=== PATIENT | male | born 1965 | race Caucasian/White ===

== ENCOUNTER → 2016-12-02 | Outpatient (CLI) | payer OTHER ==
[~2016-12-02] MED LIST: ATEN50TA PO; DILT240C96 PO; ERGO500012 PO; ESCI20TA PO; FLUT16SP NS; GADOBUTROL 7.5 MMOL/7.5 ML VIAL IV ONE; HYDR25TA9 PO; LOSA100T6 PO; POTA25TA4 PO
--- NOTE | 2016-12-02 14:47 | KCIC ---
PROCEDURE MRI brain without and with contrast. HISTORY Headaches, history of lung cancer and testicular cancer TECHNIQUE Multiplanar, multi sequential pre and post contrast MR imaging was performed of the brain. Contrast: 11 cc Gadavist COMPARISON None FINDINGS There is mild motion. There is no restricted diffusion suggestive of a recent infarct or cytotoxic edema. There is no intra-axial mass effect, midline shift, extra-axial fluid collection. There is mostly linear focus of enhancement of the left frontal lobe with associated mild T2 and FLAIR hyperintense signal, no associated mass effect, overall findings most suggestive of a developmental venous anomaly. There is no significant hemosiderin deposition of the brain parenchyma. There apparently a few tiny foci of T2 and FLAIR hyperintense signal abnormality of the supratentorial white matter although some appear to be artifactual from motion. Ventricles, sulci, and cisterns are within normal limits in size and configuration. Mastoid air cells are overall aerated. There is preservation of the major arterial intracranial flow voids at the skull base. There is moderate to severe ethmoid air cell mucosal thickening. There is mild sphenoid sinus mucosal thickening, mucous retention cyst on the left anteriorly up to 1.2 cm. There is mild to moderate right and mild left maxillary sinus mucosal thickening, also mild bilateral frontal sinus mucosal thickening. There is nonspecific increased CSF signal of the left optic nerve sheath. Cerebellar tonsils are normal in location. There is adequate preservation of marrow signal of the clivus. There is no significant abnormality of the pineal gland or pituitary gland. There are a couple of small probable nonspecific nodes of the superficial left parotid gland. IMPRESSION 1. Mostly linear focus of enhancement of the left frontal lobe is most compatible with a developmental venous anomaly. A few tiny foci of nonenhancing T2 and FLAIR hyperintense signal abnormality of the supratentorial white matter are nonspecific. White matter changes can be seen in patients with migraine headaches if corresponding history. 2. There is paranasal sinus mucosal thickening as stated greatest of the ethmoid air cells and right maxillary sinus. Electronically signed by: Cam Cho MD (Dec 02, 2016 14:45:41)
== END | disposition home or self-care (01) ==
LOC: EDBD 12:54 → KCIC MRI 12:54
DX: R51 Headache (principal)
CPT/HCPCS: 70553; A9585